=== PATIENT | male | born 1955 | race Caucasian/White ===

== ENCOUNTER 2017-06-04 09:54 | Emergency (ER) | payer OTHER ==
[2017-06-04] MEDS ORDERED: Ondansetron 4 MG/2 ML SDV IV ONE (09:58)
[2017-06-04] MEDS ORDERED: Sodium Chloride 0.9% 1,000 ML IV ONE (09:58)
[2017-06-04 10:42] LABS: CHLORIDE,CL 99 mmol/L (101-111); SODIUM,NA 135 mmol/L (135-145)
[2017-06-04] MEDS ORDERED: Iopamidol 612 MG/ML 100 ML Bottle IVPUSH ONE (10:46)
--- NOTE | 2017-06-04 10:53 | EDM.PDOC ---
ED HPI GENERAL MEDICAL PROBLEM - General Chief Complaint: Abdominal Pain Stated Complaint: AB PAIN SENT FROM [facility] Time Seen by Provider: 06/04/17 10:35 Source of Information: Reports: Patient History Limitations: Reports: No Limitations - History of Present Illness INITIAL COMMENTS - FREE TEXT/NARRATIVE: This 62 yo male patient was sent to the ED by Dr. Brewer due to severe abdominal pain. The patient reports his symptoms started on Saturday and have been getting worse since that time. The patient reports that he has been having some nausea, but no vomiting. The patient reports he had a normal bowel movement this morning, but has been passing a lot of gas over the past 2 days. The patient reports a history of prostate cancer, but no other abdominal surgeries. Onset Date: 06/02/17 Duration: Constant, Getting Worse, Intermittent Location: Reports: Abdomen Quality: Reports: Ache, Sharp, Other (cramping) Severity: Severe Improves with: Reports: None Worsens with: Reports: None Associated Symptoms: Reports: Nausea/Vomiting (nausea but no vomiting) Lower Abdominal Pain Score (Numeric/FACES): 8 - Related Data Allergies Allergy/AdvReac Type Severity Reaction Status Date / Time No Known Allergies Allergy Verified 06/04/17 09:59 Home Meds: Home Meds Simvastatin 1 tab PO BEDTIME 06/04/17 [History] Past Medical History Cardiovascular History: Reports: High Cholesterol Respiratory History: Reports: None Gastrointestinal History: Reports: None Genitourinary History: Reports: None Musculoskeletal History: Reports: Other (See Below) Other Musculoskeletal History: Neck and back pain "every once in awhile" Neurological History: Reports: None Psychiatric History: Reports: None Endocrine/Metabolic History: Reports: None Hematologic History: Reports: None Immunologic History: Reports: None Oncologic (Cancer) History: Reports: Prostate Dermatologic History: Reports: None - Past Surgical History HEENT Surgical History: Reports: Eye Surgery, Other (See Below) Other HEENT Surgeries/Procedures: Metal in 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 ED EXAM, GI/ABD - Physical Exam Exam: See Below Exam Limited By: No Limitations General Appearance: Alert, WD/WN, Moderate Distress Eyes: Bilateral: Normal Appearance, EOMI Ears: Normal External Exam, Normal Canal, Hearing Grossly Normal, Normal TMs Nose: Normal Inspection, Normal Mucosa, No Blood Throat/Mouth: Normal Inspection, Normal Lips, Normal Teeth, Normal Gums, Normal Oropharynx, Normal Voice, No Airway Compromise Head: Atraumatic, Normocephalic Neck: Normal Inspection, Supple, Non-Tender, Full Range of Motion Respiratory/Chest: No Respiratory Distress, Lungs Clear, Normal Breath Sounds, No Accessory Muscle Use, Chest Non-Tender Cardiovascular: Normal Peripheral Pulses, Regular Rate, Rhythm, No Edema, No Gallop, No JVD, No Murmur, No Rub GI/Abdominal Exam: Distended, Tender (generalized) (Male) Exam: Deferred Rectal (Males) Exam: Deferred Back Exam: Normal Inspection, Full Range of Motion, NT Extremities: Normal Inspection, Normal Range of Motion, Non-Tender, Normal Capillary Refill, No Pedal Edema Neurological: Alert, Oriented, CN II-XII Intact, Normal Cognition, Normal Gait, Normal Reflexes, No Motor/Sensory Deficits Psychiatric: Normal Affect, Normal Mood Skin Exam: Warm, Dry, Intact, Normal Color, No Rash Lymphatic: No Adenopathy Course - Vital Signs Last Recorded V/S: Last Vital Signs Temp 36.6 C 06/04/17 09:55 Pulse 70 06/04/17 09:55 Resp 20 06/04/17 09:55 BP 143/86 H 06/04/17 09:55 Pulse Ox 100 06/04/17 09:55 - Orders/Labs/Meds Orders: Active Orders 24 hr Category Date Time Status CULTURE BLOOD [BC] Stat Lab 06/04/17 10:08 Received CULTURE BLOOD [BC] Stat Lab 06/04/17 10:14 Received INFLUENZA A+B AG SCREEN [RM] Stat Lab 06/04/17 10:18 Ordered UA W/MICROSCOPIC [URIN] Stat Lab 06/04/17 10:19 Ordered Sodium Chloride 0.9% [Normal Saline] 1,000 ml Med 06/04/17 09:58 Active IV .BOLUS Blood Culture x2 Reflex Set [OM.PC] Stat Oth 06/04/17 09:56 Ordered Medication Orders Sodium Chloride (Normal Saline) 1,000 mls @ 125 mls/hr IV .BOLUS ONE Stop: 06/04/17 17:57 Last Admin: 06/04/17 10:37 Dose: 125 mls/hr Labs: Laboratory Tests 06/04/17 06/04/17 06/04/17 Range/Units 10:08 10:08 10:08 WBC 6.7 (5.0-10.0) 10^3/uL RBC 5.76 (4.6-6.2) 10^6/uL Hgb 16.8 (14.0-18.0) g/dL Hct 47.2 (40.0-54.0) % MCV 81.9 (80-100) fL MCH 29.2 (27.0-34.0) pg MCHC 35.6 H (33.0-35.0) g/dL Plt Count 163 (150-450) 10^3/uL Neut % (Auto) 67.3 (42.2-75.2) % Lymph % (Auto) 19.9 L (20.5-50.1) % Tripp % (Auto) 12.4 H (2-8) % Eos % (Auto) 0.3 L (1.0-3.0) % Baso % (Auto) 0.1 (0.0-1.0) % Sodium 135 (135-145) mmol/L Potassium 4.2 (3.6-5.0) mmol/L Chloride 99 L (101-111) mmol/L Carbon Dioxide 26.0 (21.0-31.0) mmol/L Anion Gap 14.2 BUN 15 (7-18) mg/dL Creatinine 0.9 (0.6-1.3) mg/dL Est Cr Clr Drug Dosing 75.81 mL/min Estimated GFR (MDRD) > 60 BUN/Creatinine Ratio 16.66 Glucose 137 H (74-105) mg/dL Lactic Acid (0.5-2.2) mmol/L Calcium 8.8 (8.4-10.2) mg/dl Magnesium 1.8 (1.8-2.5) mg/dL Total Bilirubin 1.0 (0.2-1.0) mg/dL AST 24 (10-42) IU/L ALT 23 (10-60) IU/L Alkaline Phosphatase 42 (42-121) IU/L Ammonia 24 (11-35) umol/L Total Protein 7.2 (6.7-8.2) g/dl Albumin 3.7 (3.2-5.5) g/dl Globulin 3.5 Albumin/Globulin Ratio 1.06 Amylase 37 (28-100) U/L Lipase 15 L (22-51) U/L Urine Color (YELLOW) Urine Appearance (CLEAR) Urine pH (5.0-9.0) Ur Specific [place] (1.005-1.030) Urine Protein (NEGATIVE) Urine Glucose (UA) (NEGATIVE) Urine Ketones (NEGATIVE) Urine Occult Blood (NEGATIVE) Urine Nitrite (NEGATIVE) Urine Bilirubin (NEGATIVE) Urine Urobilinogen (0.2-1.0) mg/dL Ur Leukocyte Esterase (NEGATIVE) Urine RBC /HPF Urine WBC (0-5/HPF) /HPF Ur Epithelial Cells /HPF Urine Bacteria (0-FEW/HPF) /HPF Urine Mucus /LPF 06/04/17 06/04/17 Range/Units 10:08 10:19 WBC (5.0-10.0) 10^3/uL RBC (4.6-6.2) 10^6/uL Hgb (14.0-18.0) g/dL Hct (40.0-54.0) % MCV (80-100) fL MCH (27.0-34.0) pg MCHC (33.0-35.0) g/dL Plt Count (150-450) 10^3/uL Neut % (Auto) (42.2-75.2) % Lymph % (Auto) (20.5-50.1) % Tripp % (Auto) (2-8) % Eos % (Auto) (1.0-3.0) % Baso % (Auto) (0.0-1.0) % Sodium (135-145) mmol/L Potassium (3.6-5.0) mmol/L Chloride (101-111) mmol/L Carbon Dioxide (21.0-31.0) mmol/L Anion Gap BUN (7-18) mg/dL Creatinine (0.6-1.3) mg/dL Est Cr Clr Drug Dosing mL/min Estimated GFR (MDRD) BUN/Creatinine Ratio Glucose (74-105) mg/dL Lactic Acid 2.6 H (0.5-2.2) mmol/L Calcium (8.4-10.2) mg/dl Magnesium (1.8-2.5) mg/dL Total Bilirubin (0.2-1.0) mg/dL AST (10-42) IU/L ALT (10-60) IU/L Alkaline Phosphatase (42-121) IU/L Ammonia (11-35) umol/L Total Protein (6.7-8.2) g/dl Albumin (3.2-5.5) g/dl Globulin Albumin/Globulin Ratio Amylase (28-100) U/L Lipase (22-51) U/L Urine Color Yellow (YELLOW) Urine Appearance Clear (CLEAR) Urine pH 6.5 (5.0-9.0) Ur Specific [place] 1.010 (1.005-1.030) Urine Protein Negative (NEGATIVE) Urine Glucose (UA) Negative (NEGATIVE) Urine Ketones Negative (NEGATIVE) Urine Occult Blood Trace-intact H (NEGATIVE) Urine Nitrite Negative (NEGATIVE) Urine Bilirubin Negative (NEGATIVE) Urine Urobilinogen 0.2 (0.2-1.0) mg/dL Ur Leukocyte Esterase Negative (NEGATIVE) Urine RBC 0-5 /HPF Urine WBC Not seen (0-5/HPF) /HPF Ur Epithelial Cells Rare /HPF Urine Bacteria Not seen (0-FEW/HPF) /HPF Urine Mucus Rare /LPF Meds: Medications Generic Name Dose Route Start Last Admin Trade Name Freq PRN Reason Stop Dose Admin Sodium Chloride 1,000 mls @ 125 mls/hr 06/04/17 09:58 06/04/17 10:37 Normal Saline IV 06/04/17 17:57 125 mls/hr .BOLUS ONE Administration Discontinued Medications Generic Name Dose Route Start Last Admin Trade Name Freq PRN Reason Stop Dose Admin Iopamidol 100 ml 06/04/17 10:46 06/04/17 11:19 Isovue-300 (61%) IVPUSH 06/04/17 10:47 100 ml ONETIME ONE Administration Ondansetron HCl 4 mg 06/04/17 09:58 06/04/17 10:38 Zofran IV 06/04/17 09:59 4 mg ONETIME ONE Administration Departure - Departure Time of Disposition: 12:49 Disposition: DC/Tfer to Acute Hospital 02 Condition: Fair Clinical Impression: Partial small bowel obstruction - Discharge Information Forms: Interfacility Transfer EMTALA Care Plan Goals: Discussed the history, lab and CT results with Dr. Stringer ([facility]). Dr. Stringer accepted the patient for continued evaluation and further management. The patient will be transported by [facility]. - My Orders Last 24 Hours: My Active Orders 06/04/17 09:56 Blood Culture x2 Reflex Set [OM.PC] Stat 06/04/17 09:58 Sodium Chloride 0.9% [Normal Saline] 1,000 ml IV .BOLUS 06/04/17 10:08 CULTURE BLOOD [BC] Stat 06/04/17 10:14 CULTURE BLOOD [BC] Stat 06/04/17 10:18 INFLUENZA A+B AG SCREEN [RM] Stat 06/04/17 10:19 UA W/MICROSCOPIC [URIN] Stat - Assessment/Plan Last 24 Hours: My Active Orders 06/04/17 09:56 Blood Culture x2 Reflex Set [OM.PC] Stat 06/04/17 09:58 Sodium Chloride 0.9% [Normal Saline] 1,000 ml IV .BOLUS 06/04/17 10:08 CULTURE BLOOD [BC] Stat 06/04/17 10:14 CULTURE BLOOD [BC] Stat 06/04/17 10:18 INFLUENZA A+B AG SCREEN [RM] Stat 06/04/17 10:19 UA W/MICROSCOPIC [URIN] Stat
== END 2017-06-04 13:30 ==
LOC: DL.ED 09:54
DX: K56.609 Unspecified intestinal obstruction, unspecified as to partial versus complete obstruction (principal); E78.00 Pure hypercholesterolemia, unspecified
CPT/HCPCS: 36415; 74177; 80053; 81001; 82140; 82150; 83605; 83690; 83735; 85025; 87040; 87804; 96361; 96374; 99285; J2405; J7030; Q9967

== ENCOUNTER 2018-10-02 06:58 | Day surgery (SDC) | payer OTHER ==
[~2018-10-02 06:58] MED LIST: Midazolam 1 MG/ML 2 ML SDV ONE; fentaNYL 100 MCG/2 ML SDV ONE
[2018-10-02] MEDS ORDERED: fentaNYL 100 MCG/2 ML SDV IV ONE ×3 (06:59→07:56)
[2018-10-02] MEDS ORDERED: Midazolam 1 MG/ML 2 ML SDV IV ONE ×7 (06:59→08:02)
[2018-10-02] MEDS ORDERED: Dextrose 5%-0.45% NaCl 1,000 ML IV SCH (07:30)
--- NOTE | 2018-10-02 13:26 | OR ---
DATE: 10/02/2018 PREOPERATIVE DIAGNOSIS: Prior colon polyps with focus of adenocarcinoma. POSTOPERATIVE DIAGNOSIS: Prior colon polyps with focus of adenocarcinoma. PROCEDURE: Total colonoscopy. ANESTHESIA: Conscious sedation with IV Versed and fentanyl. SPECIMEN: None. OPERATIVE FINDINGS: A few scattered sigmoid diverticula, otherwise normal. RECOMMENDATION: Follow up colonoscopy in 5 years. INDICATION FOR PROCEDURE: This 63-year-old male had a colonoscopy about 3 years ago that had a focus of adenocarcinoma in the tip of a polyp that was removed in the sigmoid colon. He is here for followup. PROCEDURE IN DETAIL: After adequate preparation, a colonoscope was inserted into the rectum. This was easily passed all the way to the cecum. Confirmation of the cecum was made by visualization of the ileocecal valve and palpation in the right lower quadrant. The bowel prep was good. On withdrawal of the scope, the only abnormality noted were a few sigmoid diverticula. A photograph of this was taken. A photograph was also taken of the ileocecal valve. Otherwise, there were no abnormalities. Anal and rectal examinations were normal. Air was suctioned from the colon, and the scope removed. [facility] /[id number]
== END 2018-10-02 09:44 | disposition home or self-care (01) ==
LOC: DL.ENDO 06:58
PROVIDERS: ATTEND Surgery
DX: Z12.11 Encounter for screening for malignant neoplasm of colon (principal); Z85.038 Personal history of other malignant neoplasm of large intestine
CPT/HCPCS: 45378; J2250; J3010; J7042; G0121

== ENCOUNTER 2020-12-02 10:46 | Emergency (ER) | payer MEDICARE, OTHER ==
--- NOTE | 2020-12-02 11:53 | EDM.PDOC ---
ED HPI GENERAL MEDICAL PROBLEM - General Chief Complaint: Respiratory Problem Stated Complaint: COVID POSITIVE / TROUBLE BREATHING / 101 FEVER Time Seen by Provider: 12/02/20 11:35 Source of Information: Reports: Patient, RN, RN Notes Reviewed History Limitations: Reports: No Limitations - History of Present Illness INITIAL COMMENTS - FREE TEXT/NARRATIVE: Speedy is a 65 y/o male with a history of asthma who presents to the ED via personal vehicle with complaints of shortness of breath, rib pain, nausea, and cough. The patient reports his symptoms began five days ago; he tested positive for COVID two days ago at his PCP's office. He was subsequently started on a prednisone burst, doxycycline, and Tessalon Perles. Additionally, he has been taking albuterol nebulizers daily will little relief of symptoms. The patient denies fever, shaking chills, vision changes, dizziness, chest pain/pressure, palpitations, vomiting, dyspepsia, diarrhea, constipation, or dysuria. He has been able to eat and drink, per normal routine. He voices frustration that his cough keeps him awake at night. He denies tobacco, alcohol, or recreational drug use. - Related Data Allergies Allergy/AdvReac Type Severity Reaction Status Date / Time No Known Allergies Allergy Verified 10/02/18 07:11 Home Meds: Home Meds Simvastatin 40 mg PO BEDTIME 06/04/17 [History] Past Medical History HEENT History: Reports: Impaired Vision Other HEENT History: READING GLASSES Cardiovascular History: Reports: High Cholesterol Respiratory History: Reports: None Gastrointestinal History: Reports: Colon Polyp Genitourinary History: Reports: Other (See Below) Other Genitourinary History: pROSTECTOMY Musculoskeletal History: Reports: Other (See Below) Other Musculoskeletal History: Neck and back pain "every once in awhile" Neurological History: Reports: None Psychiatric History: Reports: None Endocrine/Metabolic History: Reports: None Hematologic History: Reports: None Immunologic History: Reports: None Oncologic (Cancer) History: Reports: Prostate Dermatologic History: Reports: None - Infectious Disease History Infectious Disease History: Reports: Measles, Mumps - Past Surgical History HEENT Surgical History: Reports: Eye Surgery, Other (See Below) Other HEENT Surgeries/Procedures: Metal in 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" Cardiovascular Surgical History: Reports: None GI Surgical History: Reports: Colonoscopy, Polypectomy, Other (See Below) Other GI Surgeries/Procedures: SIGMOIDOSCOPIES Male Surgical History: Reports: Prostatectomy, Other (See Below) Other Male Surgeries/Procedures: Prostrate removed due to [place] Musculoskeletal Surgical History: Reports: None Oncologic Surgical History: Reports: None Social & Family History - Family History Family Medical History: No Pertinent Family History - Caffeine Use Caffeine Use: Reports: Tea Other Caffeine Use: 64 OZ OF SUN TEA ED ROS GENERAL - Review of Systems Review Of Systems: Comprehensive ROS is negative, except as noted in HPI. ED EXAM, GENERAL - Physical Exam Exam: See Below Exam Limited By: No Limitations General Appearance: Alert, No Apparent Distress Eye Exam: Bilateral Eye: EOMI, Normal Inspection, PERRL (3mm) Ears: Normal External Exam, Normal Canal, Hearing Grossly Normal, Normal TMs Ear Exam: Bilateral Ear: Auricle Normal, Canal Normal, TM normal Nose: Normal Inspection, Normal Mucosa, No Blood Throat/Mouth: Normal Oropharynx, Normal Voice, No Airway Compromise, Inflammation (Posterior erythema) Head: Atraumatic, Normocephalic Neck: Normal Inspection, Supple, Non-Tender, Full Range of Motion. No: Lymphadenopathy (L), Lymphadenopathy (R) Respiratory/Chest: No Respiratory Distress, Lungs Clear, Normal Breath Sounds, No Accessory Muscle Use, Chest Non-Tender. No: Crackles, Rales, Rhonchi, Wheezing, Stridor, Retractions Cardiovascular: Normal Peripheral Pulses, Regular Rate, Rhythm, No Edema, No Gallop, No JVD, No Murmur, No Rub Peripheral Pulses: 2+: Radial (L), Radial (R) GI/Abdominal: Normal Bowel Sounds, Soft, Non-Tender, No Distention, No Abnormal Bruit, No Mass, Pelvis Stable (Male) Exam: Deferred Rectal (Males) Exam: Deferred Back Exam: Normal Inspection, Full Range of Motion Extremities: Normal Inspection, Normal Range of Motion, Non-Tender, No Pedal Edema, Normal Capillary Refill Neurological: Alert, Oriented, CN II-XII Intact, Normal Cognition, Normal Gait, No Motor/Sensory Deficits Psychiatric: Normal Affect, Normal Mood Skin Exam: Warm, Dry, Intact, Normal Color, No Rash. No: Cyanosis, Jaundice, Mottled, Pallor Course - Vital Signs Last Recorded V/S: Last Vital Signs Temp 97.5 F 12/02/20 10:50 Pulse 84 12/02/20 10:50 Resp 16 12/02/20 10:50 BP 144/76 H 12/02/20 10:50 Pulse Ox 96 12/02/20 10:50 - Re-Assessments/Exams Free Text/Narrative Re-Assessment/Exam: 12/02/20 CXR obtained. Findings of examination and imaging reviewed with patient. Will treat SOB with albuterol nebs. Supportive cares discussed. Patient instructed to follow up with primary care provider regarding todays visit. Red flag signs and symptoms which would warrant immediate reevaluation reviewed. Patient verbalized understanding and agreement with the plan of care. Departure - Departure Time of Disposition: 12:36 Disposition: Home, Self-Care 01 Condition: Fair Clinical Impression: COVID-19, History of asthma, Cough, Shortness of breath - Discharge Information *PRESCRIPTION DRUG MONITORING PROGRAM REVIEWED*: Not Applicable *COPY OF PRESCRIPTION DRUG MONITORING REPORT IN PATIENT ANA: Not Applicable Instructions: COVID-19 Frequently Asked Questions, Shortness of Breath, Adult, COVID-19: How to Protect Yourself and Others - CDC, COVID-19: What to Do If You Are Sick- CDC (05/04/2020) Forms: ED Department Discharge Additional Instructions: Rx: albuterol nebulizer solution 2.5mg/3mL (#1 box) 1.) Continue on your previously prescribed medications, including doxycycline, prednisone, and Tessalon Perles 2.) You may take acetaminophen (Tylenol) 650-1000mg every six hours, as rib pain persists. 3.) Trial warm steam showers and humidified air to help with cough. 4.) Continue with quarantine, per State Department Guidelines. Keep mask on when in contact with the four year old in your home.
--- NOTE | 2020-12-02 12:18 | CR ---
EXAMINATION: Chest 1V Frontal SEX: Male AGE: 65 years CLINICAL HISTORY: 65-year-old male complaining of shortness of breath (patient tested Covid positive). Comparison CXR 13 April 2019 for chronic cough was unremarkable. Interpretation: No acute new cardiopulmonary abnormality. 1. Arthritis right AC joint. Normal cardiac silhouette (size and configuration). 2. No pulmonary vascular congestion, cephalization of flow, alveolar edema or dependent pleural fluid accumulation. 3. No new lung mass or hilar/mediastinal lymphadenopathy. Midline tracheobronchial airway unremarkable. 4. No alveolar infiltrates, air bronchograms, or peripheral "groundglass" interstitial lung densities. 5. No pneumothorax or pneumomediastinum. No free subdiaphragmatic air.
== END 2020-12-02 12:45 | disposition home or self-care (01) ==
LOC: DL.ED 10:46
DX: U07.1 COVID-19 (principal); E78.00 Pure hypercholesterolemia, unspecified; Z79.899 Other long term (current) drug therapy
CPT/HCPCS: 71045; 99284-25

== ENCOUNTER 2021-05-11 09:38 | Emergency (ER) | payer MEDICARE, OTHER ==
[2021-05-11] MEDS ORDERED: Albuterol/Ipratropium 3.0-0.5 MG/3 ML Neb Soln NEB ONE (10:29)
[2021-05-11] MEDS ORDERED: methylPREDNISolone Sodium Succinate 125 MG/2 ML SDV IVPUSH ONE (10:30)
[2021-05-11 11:02] LABS: ANION GAP 13.9 mEq/L (7-13); CHLORIDE,CL 104 mmol/L (98-107); SODIUM,NA 141 mmol/L (136-145)
[2021-05-11 11:29] LABS: CORONAVIRUS COVID-19 NAA NEGATIVE (NEGATIVE)
== END 2021-05-11 11:41 | disposition home or self-care (01) ==
LOC: DL.ED 09:38
DX: J45.909 Unspecified asthma, uncomplicated (principal); E78.00 Pure hypercholesterolemia, unspecified; Z79.899 Other long term (current) drug therapy; Z20.822 Contact with and (suspected) exposure to COVID-19
CPT/HCPCS: 0240U; 36415; 71045; 80053; 83605; 83880; 84484; 85025; 85379; 86140; 93005; 93010; 94640; 96374; 99284-25; 99285; J2930; J7620-GY

== ENCOUNTER 2022-08-31 21:49 | Emergency (ER) | payer MEDICARE, OTHER ==
[2022-08-31] MEDS: Dexamethasone 4 MG/ML SDV IM ONE (23:12)
== END 2022-08-31 23:16 | disposition home or self-care (01) ==
LOC: DL.ED 21:49
DX: S86.912A Strain of unspecified muscle(s) and tendon(s) at lower leg level, left leg, initial encounter (principal); E78.00 Pure hypercholesterolemia, unspecified; Z79.899 Other long term (current) drug therapy; X50.9XXA Other and unspecified overexertion or strenuous movements or postures, initial encounter
CPT/HCPCS: 73562-LT; 96372; 99282; 99283; J1100